=== PATIENT | male | born 1940 | race Caucasian/White ===

== ENCOUNTER 2016-06-07 09:00 | Outpatient (CLI) | payer MEDICARE | END 2016-06-07 09:01 | disposition home or self-care (01) | DX: L03.031 Cellulitis of right toe (principal) ==

== ENCOUNTER 2016-06-30 08:00 | Outpatient (CLI) | payer MEDICARE | END 2016-06-30 08:01 | disposition home or self-care (01) | DX: R19.7 Diarrhea, unspecified (principal) ==

== ENCOUNTER 2016-07-04 15:09 | Outpatient (CLI) | payer MEDICARE | END 2016-07-04 15:10 | disposition home or self-care (01) | DX: L03.031 Cellulitis of right toe (principal) ==

== ENCOUNTER 2016-08-21 12:54 | Outpatient (CLI) | payer MEDICARE | END 2016-08-21 12:55 | disposition home or self-care (01) | DX: M1A.09X1 Idiopathic chronic gout, multiple sites, with tophus (tophi) (principal) ==

== ENCOUNTER 2017-01-15 11:21 | Outpatient (CLI) | payer MEDICARE | END 2017-01-15 11:22 | disposition home or self-care (01) | LOC: LAB 11:21 | PROVIDERS: ATTEND Internal Medicine | DX: R79.89 Other specified abnormal findings of blood chemistry (principal) | CPT/HCPCS: 36415; 80074 ==

== ENCOUNTER 2022-05-25 17:22 | Outpatient (CLI) | payer OTHER, MEDICARE | END 2022-05-25 17:23 | disposition home or self-care (01) | LOC: LAB 17:22 | PROVIDERS: ATTEND Internal Medicine | DX: U07.1 COVID-19 (principal) ==

== ENCOUNTER 2022-06-20 17:05 | Outpatient (CLI) | payer OTHER, MEDICARE ==
--- NOTE | 2022-06-21 08:58 | Ultrasound Report ---
PROCEDURE: Carotid Doppler Complete INDICATIONS: BILATERAL CAROTID ARTERY STENOSIS TECHNIQUE: Color and pulse Doppler interrogation was performed of both carotid systems, with image documentation and velocity measurements. COMPARISON: None. FINDINGS: Right side: Brachial blood pressure: 164/55 mm Hg. Common carotid artery peak systolic velocity: 103 cm/sec. Internal carotid artery peak systolic velocity: 135 cm/sec. Internal carotid artery end diastolic velocity: 29 cm/sec. External carotid artery peak systolic velocity: 106 cm/sec. ICA/CCA peak systolic ratio: 1.3 . Manrique scale imaging description: Extensive atherosclerotic plaque present Percent internal carotid artery stenosis: 50-69% . Vertebral artery: Flow direction is antegrade. Left side: Brachial blood pressure: 167/53 mm Hg. Common carotid artery peak systolic velocity: 93 cm/sec. Internal carotid artery peak systolic velocity: 207 cm/sec. Internal carotid artery end diastolic velocity: 53 cm/sec. External carotid artery peak systolic velocity: 122 cm/sec. ICA/CCA peak systolic ratio: 2.2 . Manrique scale imaging description: Extensive atherosclerotic plaque. Percent internal carotid artery stenosis: 50-69% . Vertebral artery: Flow direction is antegrade. IMPRESSION: 50-69% stenosis of the internal carotid arteries. The estimate of stenosis included in the report of the imaging study was calculated using the NASCET method Reviewed by: Danny Hooper on 06/21/2022 8:57 AM PST Approved by: Danny Hooper on 06/21/2022 8:57 AM PST Station ID: [id number]
== END 2022-06-20 17:06 | disposition home or self-care (01) ==
LOC: DI 17:05
PROVIDERS: ATTEND Internal Medicine
DX: I65.23 Occlusion and stenosis of bilateral carotid arteries (principal)
CPT/HCPCS: 93880

== ENCOUNTER 2022-11-02 07:04 | Outpatient (CLI) | payer OTHER, MEDICARE ==
[2022-11-02 07:26] LABS: BASOPHILS # (AUTO) 0.1 10^3/uL (0.0-0.1); BASOPHILS % (AUTO) 1.3 %; EOSINOPHILS # (AUTO) 0.2 10^3/uL (0.0-0.7); EOSINOPHILS % (AUTO) 2.3 %; HGB - HEMOGLOBIN 11.3 g/dL (14.0-18.0); LYMPHOCYTES # (AUTO) 2.8 10^3/uL (1.5-3.5); MEAN CORPUSCULAR HEMOGLOBIN 35.9 pg (27.0-31.0); MEAN CORPUSCULAR HGB CONC 35.3 g/dL (32.0-36.0); MEAN CORPUSCULAR VOLUME 101.6 fL (80.0-94.0); MEAN PLATELET VOLUME 11.6 fL (7.4-11.4); MONOCYTES # (AUTO) 0.7 10^3/uL (0.0-1.0); MONOCYTES % (AUTO) 8.2 %; NEUTROPHILS # (AUTO) 4.9 10^3/uL (1.5-6.6); PLT - PLATELET COUNT 249 10^3/uL (130-450); RED BLOOD COUNT 3.15 10^6/uL (4.70-6.10); RED CELL DISTRIBUTION WIDTH 12.1 % (12.0-15.0); WHITE BLOOD COUNT 8.7 x10^3/uL (4.8-10.8)
[2022-11-02 07:34] LABS: ALBUMIN 4.5 g/dL (3.2-5.5); ALBUMIN/GLOBULIN RATIO 1.7 (1.0-2.2); ALKALINE PHOSPHATASE 43 IU/L (42-121); ALT ALANINE AMINOTRANSFERASE 36 IU/L (10-60); AST ASPARTATE AMINOTRANSFERASE 29 IU/L (10-42); BUN - BLOOD UREA NITROGEN 30 mg/dL (6-20); CALCIUM 9.3 mg/dL (8.5-10.3); CARBON DIOXIDE - CO2 26 mmol/L (21-32); CHLORIDE 109 mmol/L (101-111); CHOL/HDL RATIO 3.1 (<5.0); CHOLESTEROL 162 mg/dL; CREATININE 1.1 mg/dL (0.6-1.2); GFR - MDRD 64 (>89); GLUCOSE 119 mg/dL (70-100); HDL CHOLESTEROL 53 mg/dL; LDL CHOLESTEROL,CALCULATED 94 mg/dL; LDL/HDL RATIO 1.8 (<3.6); POTASSIUM 4.9 mmol/L (3.5-5.0); SODIUM 139 mmol/L (135-145); TOTAL PROTEIN 7.1 g/dL (6.7-8.2); TRIGLYCERIDES 73 mg/dL; VLDL CHOLESTEROL 15 mg/dL
== END 2022-11-02 07:05 | disposition home or self-care (01) ==
LOC: LAB 07:04
PROVIDERS: ATTEND Internal Medicine
DX: E78.5 Hyperlipidemia, unspecified (principal); Z79.899 Other long term (current) drug therapy
CPT/HCPCS: 36415; 80053; 80061; 83721; 85025

== ENCOUNTER 2023-01-08 10:41 | Emergency (ER) | payer OTHER, MEDICARE ==
[2023-01-08 11:53] LABS: B. PARAPERTUSSIS- RESP PCR PAN NOT DETECTED; B. PERTUSSIS- RESP PCR PANEL NOT DETECTED; C. PNEUMONIAE- RESP PCR PANEL NOT DETECTED; CORONAVIRUS 229E-RESP PCR NOT DETECTED; CORONAVIRUS HKU1-RESP PCR NOT DETECTED; CORONAVIRUS NL63-RESP PCR NOT DETECTED; CORONAVIRUS OC43-RESP PCR NOT DETECTED; HUMAN METAPNEUMOVIRUS NOT DETECTED; INFLUENZA A- RESP PCR PANEL NOT DETECTED; INFLUENZA B - RESP PCR PANEL NOT DETECTED; M. PNEUMONIAE- RESP PCR PANEL NOT DETECTED; PARAINFLUENZA VIRUS 1 NOT DETECTED; PARAINFLUENZA VIRUS 2 NOT DETECTED; PARAINFLUENZA VIRUS 3 NOT DETECTED; PARAINFLUENZA VIRUS 4 NOT DETECTED; RHINOVIRUS/ENTEROVIRUS NOT DETECTED; RSV- RESP PCR PANEL NOT DETECTED; SARS-CoV-2 -RESP PCR PANEL NOT DETECTED
[2023-01-08 12:01] LABS: BASOPHILS # (AUTO) 0.1 10^3/uL (0.0-0.1); BASOPHILS % (AUTO) 0.5 %; EOSINOPHILS # (AUTO) 0.1 10^3/uL (0.0-0.7); EOSINOPHILS % (AUTO) 0.3 %; HCT - HEMATOCRIT 28.3 % (42.0-52.0); HGB - HEMOGLOBIN 9.9 g/dL (14.0-18.0); LYMPHOCYTES # (AUTO) 1.5 10^3/uL (1.5-3.5); LYMPHOCYTES % (AUTO) 10.2 %; MEAN CORPUSCULAR HEMOGLOBIN 35.9 pg (27.0-31.0); MEAN CORPUSCULAR VOLUME 102.5 fL (80.0-94.0); MEAN PLATELET VOLUME 11.2 fL (7.4-11.4); MONOCYTES # (AUTO) 1.4 10^3/uL (0.0-1.0); MONOCYTES % (AUTO) 9.4 %; NEUTROPHILS # (AUTO) 11.6 10^3/uL (1.5-6.6); NEUTROPHILS % (AUTO) 79.2 %; PLT - PLATELET COUNT 295 10^3/uL (130-450); RED BLOOD COUNT 2.76 10^6/uL (4.70-6.10); RED CELL DISTRIBUTION WIDTH 11.9 % (12.0-15.0); WHITE BLOOD COUNT 14.7 x10^3/uL (4.8-10.8)
--- NOTE | 2023-01-08 12:03 | XRAY Report ---
PROCEDURE: Chest 1 View X-Ray INDICATIONS: fever, cough TECHNIQUE: One view of the chest was acquired. COMPARISON: 04/16/2016, 04/25/2016, 03/28/2016 FINDINGS: Surgical changes and devices: Sternotomy changes are noted. Lungs and pleura: No pleural effusions or pneumothorax. Lungs are clear. Mediastinum: Mediastinal contours appear normal. Heart size is normal. Bones and chest wall: No suspicious bony lesions. Age-appropriate degenerative changes are seen. O verlying soft tissues appear unremarkable. IMPRESSION: No acute cardiopulmonary process. No focal infiltrates are seen. Postoperative and degenerative changes are seen. Reviewed by: Abiodun Allen MD on 01/08/2023 11:01 AM IRINE[facility] Approved by: Abiodun Allen MD on 01/08/2023 11:01 AM IRINE[facility] Station ID: [id number]
--- NOTE | 2023-01-08 12:05 | ED Physician Documentation ---
History of Present Illness - Stated complaint Stated Complaint: GEN WEAKNESS,MERCER,FEVER,COUGH - Chief complaint Chief Complaint: Fever - History obtained from History obtained from: Patient, Family - History of Present Illness Timing: How many days ago (several) Pain level max: 0 Pain level now: 0 - Additonal information Additional information: Patient is an 82-year-old male who presents to the emergency department complaining of a cough for the past several days. Complains of fatigue and generalized weakness. The cough is mostly dry. He had a fever today of 101.5. He has had chills and sweats as well. Has not taken a COVID test. No abdominal pain. No nausea, vomiting or diarrhea. Nothing makes it better or worse. No recent travel. Took Tylenol today. Patient has a history of hypertension, coronary artery disease status post 5 vessel CABG in 2003. Gout, peripheral vascular disease. Chronic renal insufficiency. Review of Systems Constitutional: reports: Fever, Chills, Myalgias, Fatigue, Sweats Eyes: denies: Decreased vision Ears: denies: Ear pain Nose: reports: Rhinorrhea / runny nose, Congestion Throat: denies: Sore throat Cardiac: denies: Chest pain / pressure, Palpitations Respiratory: reports: Cough. denies: Dyspnea, Hemoptysis, Wheezing GI: denies: Abdominal Pain, Nausea, Vomiting, Diarrhea Skin: denies: Rash Musculoskeletal: denies: Neck pain, Back pain Neurologic: denies: Headache PD PAST MEDICAL HISTORY - Past Medical History Cardiovascular: Hypertension, Coronary artery disease, Peripheral Vascular Disease, Valve disorder Respiratory: None Endocrine/Autoimmune: None GI: GERD, Ulcers, Colon polyps : None HEENT: Chronic vision loss, Chronic hearing loss Psych: None Musculoskeletal: Osteoarthritis, Gout - Past Surgical History Past Surgical History: Yes General: Splenectomy, Colonoscopy, EGD Cardiovascular: CABG, Cardiac catheterization, Fempop bypass Derm: Skin cancer surgery - Present Medications Home Medications: Ambulatory Orders Medication Instructions Recorded Confirmed Atorvastatin [Lipitor] 20 mg PO DAILY 03/28/16 01/08/23 Pantoprazole [Protonix] 40 mg PO BID #60 03/29/16 01/08/23 lisinopriL [Lisinopril] 0.5 tab PO DAILY 04/12/16 01/08/23 carvediloL [Coreg] 25 mg PO BID #60 tablet 04/17/16 01/08/23 Clopidogrel [Plavix] 75 mg PO ONCE 01/08/23 01/08/23 Spironolactone [Aldactone] 25 mg PO DAILY 01/08/23 01/08/23 - Allergies Allergies/Adverse Reactions: Allergies Allergy/AdvReac Type Severity Reaction Status Date / Time No Known Drug Allergies Allergy Verified 01/08/23 10:49 - Social History Does the pt smoke?: No Smoking Status: Former smoker Does the pt have substance abuse?: No - Immunizations Immunizations are current?: Yes PD ED PE NORMAL - Vitals Vital signs reviewed: Yes - General General: Alert and oriented X 3, No acute distress - HEENT HEENT: Moist mucous membranes - Neck Neck: Supple, no meningeal sign - Cardiac Cardiac: RRR, Strong equal pulses - Respiratory Respiratory: No respiratory distress, Clear bilaterally - Abdomen Abdomen: Soft, Non tender, Non distended - Derm Derm: Warm and dry, No rash - Extremities Extremities: No edema, No calf tenderness / cord - Neuro Neuro: Alert and oriented X 3 - Psych Psych: Normal mood, Normal affect Results - Vitals Vitals: Vital Signs - 24 hr 01/08/23 01/08/23 10:50 14:49 Temperature 37.4 C 37.2 C Heart Rate 76 80 Respiratory 18 17 Rate Blood Pressure 117/70 122/74 O2 Saturation 94 96 Oxygen O2 Source Room air - Labs Labs: Laboratory Tests 01/08/23 01/08/23 01/08/23 10:55 11:57 11:57 WBC 14.7 H RBC 2.76 L Hgb 9.9 L Hct 28.3 L MCV 102.5 H MCH 35.9 H MCHC 35.0 RDW 11.9 L Plt Count 295 MPV 11.2 Neut # (Auto) 11.6 H Lymph # (Auto) 1.5 Sargent # (Auto) 1.4 H Eos # (Auto) 0.1 Baso # (Auto) 0.1 Absolute Nucleated RBC 0.00 Nucleated RBC % 0.0 Sodium 133 L Potassium 4.4 Chloride 103 Carbon Dioxide 25 Anion Gap 5.0 L BUN 40 H Creatinine 1.5 H Estimated GFR (MDRD) 45 L Glucose 132 H Lactic Acid Calcium 9.4 Total Bilirubin 1.3 H AST 24 ALT 32 Alkaline Phosphatase 50 Total Protein 6.4 Albumin 4.0 Globulin 2.4 Albumin/Globulin Ratio 1.7 Urine Color Urine Clarity Urine pH Ur Specific Colwell Urine Protein Urine Glucose (UA) Urine Ketones Urine Occult Blood Urine Nitrite Urine Bilirubin Urine Urobilinogen Ur Leukocyte Esterase Urine RBC Urine WBC Ur Squamous Epith Cells Urine Bacteria Ur Microscopic Review Urine Culture Comments Nasal Adenovirus (PCR) NOT DETECTED Nasal B. parapertussis DNA (PCR) NOT DETECTED Nasal Coronavir 229E PCR NOT DETECTED Nasal Coronavir HKU1 PCR NOT DETECTED Nasal Coronavir NL63 PCR NOT DETECTED Nasal Coronavir OC43 PCR NOT DETECTED Nasal Enterovir/Rhinovir PCR NOT DETECTED Nasal Influenza B PCR NOT DETECTED Nasal Influenza A PCR NOT DETECTED Nasal Parainfluen 1 PCR NOT DETECTED Nasal Parainfluen 2 PCR NOT DETECTED Nasal Parainfluen 3 PCR NOT DETECTED Nasal Parainfluen 4 PCR NOT DETECTED Nasal RSV (PCR) NOT DETECTED Nasal B.pertussis DNA PCR NOT DETECTED Nasal C.pneumoniae (PCR) NOT DETECTED Gil Human Metapneumo PCR NOT DETECTED Nasal M.pneumoniae (PCR) NOT DETECTED Nasal SARS-CoV-2 (PCR) NOT DETECTED 01/08/23 01/08/23 11:57 14:00 WBC RBC Hgb Hct MCV MCH MCHC RDW Plt Count MPV Neut # (Auto) Lymph # (Auto) Sargent # (Auto) Eos # (Auto) Baso # (Auto) Absolute Nucleated RBC Nucleated RBC % Sodium Potassium Chloride Carbon Dioxide Anion Gap BUN Creatinine Estimated GFR (MDRD) Glucose Lactic Acid 0.7 Calcium Total Bilirubin AST ALT Alkaline Phosphatase Total Protein Albumin Globulin Albumin/Globulin Ratio Urine Color YELLOW Urine Clarity CLEAR Urine pH 5.5 Ur Specific Colwell 1.020 Urine Protein TRACE Urine Glucose (UA) NEGATIVE Urine Ketones NEGATIVE Urine Occult Blood NEGATIVE Urine Nitrite NEGATIVE Urine Bilirubin NEGATIVE Urine Urobilinogen 1 (NORMAL) Ur Leukocyte Esterase SMALL H Urine RBC 0-5 Urine WBC 0-3 Ur Squamous Epith Cells RARE Squamous Urine Bacteria Rare Ur Microscopic Review INDICATED Urine Culture Comments INDICATED Nasal Adenovirus (PCR) Nasal B. parapertussis DNA (PCR) Nasal Coronavir 229E PCR Nasal Coronavir HKU1 PCR Nasal Coronavir NL63 PCR Nasal Coronavir OC43 PCR Nasal Enterovir/Rhinovir PCR Nasal Influenza B PCR Nasal Influenza A PCR Nasal Parainfluen 1 PCR Nasal Parainfluen 2 PCR Nasal Parainfluen 3 PCR Nasal Parainfluen 4 PCR Nasal RSV (PCR) Nasal B.pertussis DNA PCR Nasal C.pneumoniae (PCR) Gil Human Metapneumo PCR Nasal M.pneumoniae (PCR) Nasal SARS-CoV-2 (PCR) - Rads (name of study) cxr Relevant Findings:: Final report received, See rad report PD Medical Decision Making - ED course Complexity details: reviewed results, re-evaluated patient, considered differential, d/w patient, d/w family ED course: Patient is well-appearing, nontoxic. No acute findings on x-ray. No significant lab abnormalities. He feels much better after IV fluids. No hypoxia. No respiratory distress. No UTI. No pneumonia. Lactate is normal. Ambulating without difficulty. Negative COVID. Negative respiratory panel. Likely viral syndrome. We will have him follow-up with his PCP for further care. Patient counseled regarding signs and symptoms for which I believe and urgent re-evaluation would be necessary. Patient with good understanding of and agreement to plan and is comfortable going home at this time This document was made in part using voice recognition software. While efforts are made to proofread this document, sound alike and grammatical errors may occur. Departure - Departure Disposition: 01 Home, Self Care Clinical Impression: Viral syndrome, Dehydration Condition: Good Instructions: ED Dehydration, ED Viral Syndrome Follow-Up: Vickie Haider MD [Primary Care Provider] - Within 1 week Comments: Please make sure you are drinking plenty of fluids at home. Your x-ray does not show any evidence of pneumonia today. Your COVID test is negative. The remainder of your respiratory viral panel is negative as well. Please return if you worsen. Forms: PCP List Discharge Date/Time: 01/08/23 14:50
[2023-01-08 12:13] LABS: ALBUMIN/GLOBULIN RATIO 1.7 (1.0-2.2); BILIRUBIN,TOTAL 1.3 mg/dL (0.2-1.0); CALCIUM 9.4 mg/dL (8.5-10.3); CREATININE 1.5 mg/dL (0.6-1.3); POTASSIUM 4.4 mmol/L (3.5-4.5); TOTAL PROTEIN 6.4 g/dL (6.4-8.9)
[2023-01-08] MEDS ORDERED: SODIUM CHLORIDE 0.9% 1,000 ML IV STA (12:35)
[2023-01-08 14:18] LABS: BILIRUBIN,URINE NEGATIVE (NEGATIVE); GLUCOSE, URINE (UA) NEGATIVE (NEGATIVE); KETONES,URINE (UA) NEGATIVE (NEGATIVE); LEUKOCYTE ESTERASE, URINE SMALL (NEGATIVE); NITRITE,URINE NEGATIVE (NEGATIVE); OCCULT BLOOD,URINE NEGATIVE (NEGATIVE); PH,URINE 5.5 PH (5.0-7.5); PROTEIN,URINE TRACE mg/dL (NEGATIVE); UROBILINOGEN,URINE 1 (NORMAL) E.U./dL (NORMAL)
[2023-01-08 14:20] LABS: BACTERIA,URINE Rare /HPF (None Seen); CLARITY,URINE CLEAR (CLEAR); RBC,URINE 0-5 /HPF (0-5); SQUAMOUS EPITHELIAL CELL,UR RARE Squamous (<= Few); WBC,URINE 0-3 /HPF (0-3)
[2023-01-08 14:56] VITALS: BP 122/74; O2SAT 96
--- NOTE | 2023-01-10 14:14 | ED Physician Documentation ---
ED Addendum - Addendum Addendum: 01/10/23 14:14 Culture review, since he had been febrile at home and had a white count I do think we should treat the positive urine culture and a prescription for amoxicillin 500 mg p.o. 3 times daily 10 days was sent to the [facility] pharmacy I will have the nurse call him.
== END 2023-01-08 14:50 | disposition home or self-care (01) ==
LOC: ED 10:41
DX: B34.9 Viral infection, unspecified (principal); E86.0 Dehydration; I10 Essential (primary) hypertension; I25.810 Atherosclerosis of coronary artery bypass graft(s) without angina pectoris; Z95.1 Presence of aortocoronary bypass graft; Z20.822 Contact with and (suspected) exposure to COVID-19; Z79.899 Other long term (current) drug therapy; Z87.891 Personal history of nicotine dependence; Z79.02 Long term (current) use of antithrombotics/antiplatelets
CPT/HCPCS: 36415; 80053; 81001; 81003; 83605; 85025; 87077; 87086; 87181; 87633; 96360; 99283

== ENCOUNTER 2023-03-02 17:15 | Outpatient (CLI) | payer OTHER, MEDICARE ==
[2023-03-02 17:41] LABS: BASOPHILS # (AUTO) 0.1 10^3/uL (0.0-0.1); EOSINOPHILS # (AUTO) 0.4 10^3/uL (0.0-0.7); EOSINOPHILS % (AUTO) 4.4 %; HCT - HEMATOCRIT 31.3 % (42.0-52.0); HGB - HEMOGLOBIN 10.9 g/dL (14.0-18.0); LYMPHOCYTES # (AUTO) 3.9 10^3/uL (1.5-3.5); LYMPHOCYTES % (AUTO) 39.2 %; MEAN CORPUSCULAR HEMOGLOBIN 35.4 pg (27.0-31.0); MEAN CORPUSCULAR HGB CONC 34.8 g/dL (32.0-36.0); MEAN CORPUSCULAR VOLUME 101.6 fL (80.0-94.0); MEAN PLATELET VOLUME 12.1 fL (7.4-11.4); MONOCYTES # (AUTO) 1.1 10^3/uL (0.0-1.0); MONOCYTES % (AUTO) 10.8 %; NEUTROPHILS # (AUTO) 4.4 10^3/uL (1.5-6.6); NEUTROPHILS % (AUTO) 44.3 %; PLT - PLATELET COUNT 229 10^3/uL (130-450); RED BLOOD COUNT 3.08 10^6/uL (4.70-6.10); RED CELL DISTRIBUTION WIDTH 12.3 % (12.0-15.0); WHITE BLOOD COUNT 9.9 x10^3/uL (4.8-10.8)
[2023-03-02 17:50] LABS: CREATININE,URINE 79.7 mg/dL; MICROALBUM/CREATININE RATIO,UR 13.8 ug/mg (<30.0); MICROALBUMIN,URINE 1.1 mg/dL
[2023-03-02 17:59] LABS: ALBUMIN 4.7 g/dL (3.2-5.5); ALBUMIN/GLOBULIN RATIO 2.2 (1.0-2.2); BILIRUBIN,TOTAL 0.7 mg/dL (0.2-1.0); CALCIUM 9.5 mg/dL (8.5-10.3); CREATININE 1.1 mg/dL (0.6-1.3); POTASSIUM 4.3 mmol/L (3.5-4.5); TOTAL PROTEIN 6.8 g/dL (6.4-8.9); URIC ACID 5.6 mg/dL (4.4-7.6)
== END 2023-03-02 17:16 | disposition home or self-care (01) ==
LOC: LAB 17:15
PROVIDERS: ATTEND Internal Medicine
DX: I65.23 Occlusion and stenosis of bilateral carotid arteries (principal); G47.00 Insomnia, unspecified; E78.5 Hyperlipidemia, unspecified; Z79.899 Other long term (current) drug therapy; I25.10 Atherosclerotic heart disease of native coronary artery without angina pectoris
CPT/HCPCS: 36415; 80053; 82043; 82570; 84550; 85025

== ENCOUNTER 2023-03-12 13:43 | Emergency (ER) | payer OTHER, MEDICARE ==
[2023-03-12 14:24] VITALS: BP 157/47; O2SAT 97
--- NOTE | 2023-03-12 14:46 | XRAY Report ---
PROCEDURE: Ankle 3 View RT INDICATIONS: Trauma TECHNIQUE: 3 views of the ankle were acquired. COMPARISON: None FINDINGS: Bones: No fractures or dislocations. Ankle mortise is normally aligned. No suspicious bony lesions . Soft tissues: Unremarkable without significant soft tissue swelling. No radiopaque foreign body. Athe rosclerotic vascular calcification noted IMPRESSION: No fracture or foreign body. Reviewed by: Navdeep Jeffery MD on 03/12/2023 1:45 PM [place] Approved by: Navdeep Jeffery MD on 03/12/2023 1:45 PM [place] Station ID: [id number]
--- NOTE | 2023-03-12 16:12 | ED Physician Documentation ---
History of Present Illness - Stated complaint Stated Complaint: PX RT LEG - Chief complaint Chief Complaint: Trauma Ext - Additonal information Additional information: 82-year-old male presents emergency department for evaluation of acute right lower leg pain. States he was stepping down from a truck 4 days ago when he nearly fell and his right leg was bruised by the step off or run out of the truck. Since then he has pain mostly when he goes to stand from rest. He has been ambulatory. He does have a history of congestive heart failure and has moderate swelling of the lower extremities bilaterally which is not new. However he wears stockings that stop at the mid ankle causing increased pain over the site of contusion. Review of Systems Constitutional: denies: Fever, Chills GI: reports: Reviewed and negative : reports: Reviewed and negative Musculoskeletal: reports: Extremity pain PD PAST MEDICAL HISTORY - Past Medical History Past Medical History: Yes Cardiovascular: Hypertension, Coronary artery disease, Peripheral Vascular Disease, Valve disorder Respiratory: None Endocrine/Autoimmune: None GI: GERD, Ulcers, Colon polyps : None HEENT: Chronic vision loss, Chronic hearing loss Psych: None Musculoskeletal: Osteoarthritis, Gout - Past Surgical History Past Surgical History: Yes General: Splenectomy, Colonoscopy, EGD Cardiovascular: CABG, Cardiac catheterization, Fempop bypass Derm: Skin cancer surgery - Present Medications Home Medications: Ambulatory Orders Medication Instructions Recorded Confirmed Atorvastatin [Lipitor] 20 mg PO DAILY 03/28/16 03/12/23 lisinopriL [Lisinopril] 0.5 tab PO DAILY 04/12/16 03/12/23 carvediloL [Coreg] 25 mg PO BID #60 tablet 04/17/16 03/12/23 Clopidogrel [Plavix] 75 mg PO ONCE 01/08/23 03/12/23 Spironolactone [Aldactone] 25 mg PO DAILY 01/08/23 03/12/23 Ezetimibe [Zetia] 10 mg PO DAILY 03/12/23 03/12/23 allopurinoL [Zyloprim] 100 mg PO DAILY 03/12/23 03/12/23 - Allergies Allergies/Adverse Reactions: Allergies Allergy/AdvReac Type Severity Reaction Status Date / Time No Known Drug Allergies Allergy Verified 03/12/23 14:15 - Social History Does the pt smoke?: No Smoking Status: Never smoker Does the pt drink ETOH?: Yes Does the pt have substance abuse?: No - Immunizations Immunizations are current?: Yes PD ED PE NORMAL - Respiratory Respiratory: No respiratory distress - Abdomen Abdomen: Normal bowel sounds - Extremities Extremities: No deformity, Other (Tenderness with palpation of the lower anterior right leg with some mild swelling but no ecchymosis or erythema. Full range of motion of the ankle. No obvious deformity. 2+ DP pulse.) Results - Vitals Vitals: Vital Signs - 24 hr 03/12/23 14:10 Temperature 36.4 C L Heart Rate 69 Respiratory 16 Rate Blood Pressure 157/47 H O2 Saturation 97 Oxygen O2 Source Room air - Rads (name of study) right ankle xr Relevant Findings:: Final report received PD Medical Decision Making - ED course Complexity details: reviewed results, re-evaluated patient, d/w patient ED course: 82-year-old male here for acute right leg pain sustained when he was stepping down from his truck and abraded his leg on the runner. Since then he has had some pain on the lower anterior leg without obvious deformity or ecchymosis though there is some moderate swelling. An x-ray of the lower leg and ankle is interpreted by the radiologist shows no acute fracture and the patient's clinical exam is rather benign with exception of some mild tenderness. At this time I suspect a deeper bone contusion or soft tissue bruise. Patient is anticoagulated as such NSAIDs would not be acceptable. I recommended Tylenol and lidocaine cream. He is discharged home in stable condition with usual emergent return precautions discussed for worsening symptoms. Departure - Departure Disposition: 01 Home, Self Care Clinical Impression: Contusion of right lower leg Qualifiers: Encounter type: initial encounter Qualified Code(s): S80.11XA - Contusion of right lower leg, initial encounter Condition: Stable Record reviewed to determine appropriate education?: Yes Comments: Quinton the x-ray of your right leg does not show a broken bone. I suspect that you have a contusion or deep tissue or even a bone bruise. These typically take several weeks to heal. I would recommend that you wear compressive stockings that go well above your calf or knee. This will help prevent tension right over the site where you are most tender. Elevate the legs at night. You can continue your usual medications at home but I would recommend applying lidocaine cream to the lower leg where it is tender as this may also help with pain. Return to the ER if you are having any new or worsening symptoms, increased pain, swelling or fevers.
== END 2023-03-12 16:16 | disposition home or self-care (01) ==
LOC: ED 13:43
DX: S80.11XA Contusion of right lower leg, initial encounter (principal); X58.XXXA Exposure to other specified factors, initial encounter; I10 Essential (primary) hypertension
CPT/HCPCS: 99283

== ENCOUNTER 2023-06-01 17:08 | Outpatient (CLI) | payer MEDICARE, OTHER ==
--- NOTE | 2023-06-02 13:23 | XRAY Report ---
PROCEDURE: Lumbar Spine 4V INDICATIONS: BACK PAIN TECHNIQUE: 3 views of the lumbar spine were acquired. COMPARISON: None. FINDINGS: Bones: 5 [id number] vertebrae are present. 2 mm grade 1 retrolisthesis at L1-2. Multilevel disc space narrowing and degenerative endplate changes are seen. There is multilevel facet hypertrophy. N o vertebral body compression fractures. No suspicious bony lesions. Soft tissues: Overlying bowel gas pattern is normal. Pulmonary aortic atherosclerotic calcifications are present. IMPRESSION: Moderate multilevel spondylosis and degenerative spondylolisthesis. Reviewed by: Alfredo Brady MD on 06/02/2023 1:22 PM PST Approved by: Alfredo Brady MD on 06/02/2023 1:22 PM [facility] Station ID: [id number]
== END 2023-06-01 17:09 | disposition home or self-care (01) ==
LOC: DI 17:08
PROVIDERS: ATTEND Internal Medicine
DX: M47.816 Spondylosis without myelopathy or radiculopathy, lumbar region (principal); M43.16 Spondylolisthesis, lumbar region